=== PATIENT | female | born 2000 | race Caucasian/White ===

== ENCOUNTER 2022-01-31 05:34 | Outpatient (RCR) | payer BC ==
[~2022-01-31] VITALS: Ht 157.5 cm; Wt 52.2 kg
[2022-02-01] MEDS ORDERED: LEVO5TAB28 PO (08:16)
[2022-02-01] MEDS ORDERED: RT-ALBUINH IH (08:16)
[2022-02-01] MEDS ORDERED: FLUT16SP22 NS (08:16)
[2022-02-01] MEDS ORDERED: BECL10.62 IH (08:16)
[2022-02-01] MEDS ORDERED: MULT-141 PO (08:16)
[2022-02-01] MEDS ORDERED: LEVO1TAB9 PO (08:16)
== END 2022-02-01 09:04 | disposition home or self-care (01) ==
LOC: PREOP 05:34
PROVIDERS: ATTEND Internal Medicine
DX: Z01.818 Encounter for other preprocedural examination (principal)

== ENCOUNTER 2022-02-08 10:06 | Day surgery (SDC) | payer BC ==
--- NOTE | 2022-01-30 16:09 | HISTORY AND PHYSICAL ---
DATE OF SERVICE: EGD HISTORY AND PHYSICAL DATE OF ADMISSION: 02/08/2022 REFERRING: Missy Srivastava is referring nurse practitioner from [facility]. 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 Vomiting is rare, but nausea happens on a daily basis and she reports that this goes back a number of years, possibly to grade school. She has not had any previous GI tract workup. It has been worse over the past several months. She reports that she has always been thin and does not believe that there has been a significant change in weight. She reports some early satiety, but is most troubled by low-grade nausea. When it is bad occasionally, she will vomit with no evidence for hematemesis. She denies melena or bright red blood per rectum. FAMILY HISTORY: Negative as far as she is aware for gallbladder disease or peptic ulcer disease and she is not aware of any GI tract malignancy history. SOCIAL HISTORY: She reports no alcohol, illicit drug or smoking history. PAST MEDICAL HISTORY: Significant for allergic rhinitis. She is on control therapy and has been taking hydroxyzine given to her for reported nausea. She does have a history of asthma, on inhaler therapy, reportedly well controlled. REVIEW OF SYSTEMS: CONSTITUTIONAL: Denies night sweats, chills, fever, change in weight. PULMONARY: Denies cough and as long as she is using her inhalers, no wheezing or shortness of breath. CARDIOVASCULAR: Denies chest pain. GASTROINTESTINAL: As noted in the HPI. PHYSICAL EXAMINATION: GENERAL: Reveals a white female appeared to be in no acute distress. VITAL SIGNS: Weight 114 pounds, BMI 20. HEENT: Unremarkable. Sclerae nonicteric. CHEST: Clear to auscultation. CARDIOVASCULAR: Reveals regular rate and rhythm without murmur, S3 or S4. ABDOMEN: Reveals tenderness in the epigastrium without rebound or guarding. No mass or organomegaly is noted. EXTREMITIES: Reveal no cyanosis, clubbing or edema. ASSESSMENT AND PLAN: For further investigation of chronic nausea and epigastric pain, the patient is being set up for EGD evaluation with further recommendations pending evaluation. I thank you for the referral of this pleasant lady. CC: Missy Vanbecelaere, [employer] -- requested, unable to deliver. Job ID: [id number] DocumentID: [id number] Dictated Date: 01/23/2022 16:39:41 Internet Project Manager Date: 01/23/2022 17:16:03 Dictated By: NURIA LEDESMA MD MTDD
[~2022-02-08] VITALS: Ht 157 cm; Wt 52.2 kg
[~2022-02-08 10:06] MED LIST: BECL10.62 IH; FLUT16SP22 NS; LEVO1TAB9 PO; LEVO5TAB28 PO; MULT-141 PO; RT-ALBUINH IH
[2022-02-08] MEDS ORDERED: LACTATED RINGERS 1,000 ML IV STA (10:13)
[2022-02-08] MEDS ORDERED: LIDOCAINE JELLY 2% 6 ML SYRINGE MM PRN (10:15)
[2022-02-08] MEDS ORDERED: LACTATED RINGERS 1,000 ML IV ONE (10:15)
[2022-02-08] MEDS ORDERED: HURRICAINE EXT TUBE (BENZOCAINE) XX PRN (10:15)
[2022-02-08 10:25] VITALS: BP 128/79
--- NOTE | 2022-02-08 10:43 | Pre-Op Note & Conscious Sedat ---
Pre-Operative Progress Note H&P Reviewed The H&P was reviewed, patient examined and no changes noted. Date H&P Reviewed: Feb 08, 2022 Time H&P Reviewed: 10:15 Conscious Sedation Pre-Proced ASA Score 1 For ASA 3 and 4: Consider anesthesia and medical clearance. Also, for patients with a history of failed moderate sedation consider anesthesia. Airway Lungs Heart ASA score ASA 1: a normal healthy patient ASA 2: a patient with a mild systemic disease (mid diabetes, controlled hypertension, obesity ASA 3: a patient with a severe systemic disease that limits activity (angina, COPD, prior Myocardial infarction) ASA 4: a patient with an incapacitating disease that is a constant threat to life (CHF, renal failure) ASA 5: a moribund patient not expected to survive 24 hrs. (ruptured aneurysm) ASA 6: a declared brain- patient whose organs are being harvested. For emergent operations, add the letter E after the classification Mallampati Classification Grade 2 Sedation Plan Analgesia, Amnesia, Plan communicated to team members, Discussed options with patient/fam, Discussed risks with patient/fam The patient is an appropriate candidate to undergo the planned procedure, sedation, and anesthesia. The patient immediately re-assessed prior to indication. NURIA LEDESMA MD Feb 08, 2022 10:43
[2022-02-08] MEDS ORDERED: MIDAZOLAM 2 MG/2 ML (VERSED) VIAL ONE (10:47)
[2022-02-08] MEDS ORDERED: proPOfol 200 MG/20 ML (DIPRIVAN) VIAL IV ONE (10:47)
[2022-02-08 11:10] VITALS: BP 106/59
[2022-02-08 11:15] VITALS: BP 122/75
[2022-02-08 11:40] VITALS: BP 116/74
[2022-02-08 11:47] VITALS: BP 116/74
--- NOTE | 2022-02-08 13:42 | Anesthesia-General Post-Op ---
MAC Patient Condition Mental Status/LOC: Same as Preop Cardiovascular: Satisfactory Nausea/Vomiting: Absent Respiratory: Satisfactory Pain: Controlled Complications: Absent Post Op Complications Complications None Follow Up Care/Instructions Patient Instructions None needed. Anesthesiology Discharge Order Discharge Order Patient is doing well, no complaints, stable vital signs, no apparent adverse anesthesia problems. No complications reported per nursing. RUDDY ACHARYA CRNA Feb 08, 2022 13:42
--- NOTE | 2022-02-08 18:41 | OPERATIVE REPORT ---
DATE OF SERVICE: EGD SUMMARY INDICATION FOR THE PROCEDURE: Chronic nausea, intermittent vomiting, and epigastric pain. DESCRIPTION OF PROCEDURE: The patient was placed in the left lateral decubitus position. The endoscope was inserted in the oral cavity and under direct visualization, the esophagus was intubated. The endoscope was passed down the esophagus through stomach and the second portion of the duodenum. Careful inspection was made as the endoscope was withdrawn. FINDINGS: The proximal, mid, and distal esophagus were unremarkable except for the fact that the lower esophageal sphincter remained patent through a good of portion of the examination. There was no evidence for overt erosive esophagitis or Hussein's change. Photograph was obtained and a biopsy from the GE junction was obtained and submitted for histopathology. The cardia and the fundus of the stomach were unremarkable with no evidence for hiatal hernia was noted. The antrum revealed some mild erythema without erosions or ulceration. A biopsy was submitted for Helicobacter evaluation. The pylorus, the pyloric channel, duodenal bulb, and second portion of the duodenum was unremarkable with normal villous appearing architecture on gross inspection. ASSESSMENT: There does appear to be some laxity of the lower esophageal sphincter without evidence for erosive esophagitis. Nausea symptoms may be reflux related, so I did give her a trial of omeprazole 20 mg first thing in the morning and we will have her follow up in one month. Not mentioned above, the patient did have a little more than the average amount of clear fluid in the stomach. There was no retained food with last reported intake being 13 to 14 hours prior to the time of the endoscopy. If she does not report any benefit from proton pump inhibitor therapy with her symptoms, we will likely set up a gastric emptying time to evaluate for underlying gastroparesis. I thank you for the referral of this pleasant lady, reassured by today's findings. CC: Janina Srivastava APRN - requested, unable to deliver. Job ID: [id number] DocumentID: [id number] Dictated Date: 02/08/2022 11:55:19 Bedspread Seamer Date: 02/08/2022 18:40:57 Dictated By: NURIA LEDESMA MD [facility]
[2022-02-09] MEDS ORDERED: OMEP20CA18 PO (17:51)
== END 2022-02-08 12:00 | disposition home or self-care (01) ==
LOC: ENDO 10:06
PROVIDERS: ATTEND Internal Medicine
DX: K29.50 Unspecified chronic gastritis without bleeding (principal); K31.89 Other diseases of stomach and duodenum; J45.909 Unspecified asthma, uncomplicated
CPT/HCPCS: 84703; 88305

== ENCOUNTER → 2022-03-18 | Outpatient (CLI) | payer BC ==
[~2022-03-18] MED LIST changes: +OMEP20CA18 PO
== END ==
LOC: CARD 15:00
PROVIDERS: ATTEND Internal Medicine
DX: I51.0 Cardiac septal defect, acquired (principal)
CPT/HCPCS: 93306